=== PATIENT | male | born 2000 | race Caucasian/White ===

== ENCOUNTER 2022-08-31 11:38 | Emergency (ER) | payer OTHER, SELFPAY ==
[2022-08-31] MEDS ORDERED: Ketorolac Tromethamine 30 MG/ML VIAL ONE (13:03)
[2022-08-31] MEDS ORDERED: Boostrix 0.5 ML (Tdap) VIAL (>/=7 yrs of age) ONE (13:03)
[2022-08-31] MEDS ORDERED: Lidocaine 1% PF 5 ML VIAL ONE (13:19)
[2022-08-31] MEDS ORDERED: Bacitracin 1 PK ONE (13:58)
== END 2022-08-31 14:07 | disposition home or self-care (01) ==
LOC: ERS 11:38
DX: S61.412A Laceration without foreign body of left hand, initial encounter (principal); Z23 Encounter for immunization; W26.8XXA Contact with other sharp object(s), not elsewhere classified, initial encounter
CPT/HCPCS: 12042; 90471; 90715; 96372; J1885